=== PATIENT | female | born 1935 | race Caucasian/White ===

== ENCOUNTER 2016-12-20 06:11 | Day surgery (SDC) | payer MEDICARE ==
[~2016-12-20 06:11] MED LIST: Buffered Lidocaine 0.9% SYRIN* 5 ML/SYR SYRINGE INTRADERM ONE; Famotidine IV* 10 MG/ML 2 ML (20 mg) IV ONE
[2016-12-20] MEDS ORDERED: Famotidine IV* 10 MG/ML 2 ML (20 mg) ONE (06:12)
[2016-12-20] MEDS ORDERED: ceFOXitin 2 GM IVPREMIX* 2 GM/50 ML BAG ONE (06:12)
[2016-12-20] MEDS ORDERED: Midazolam* 1 MG/ML 5 ML VIAL (5 MG) ONE (07:29)
[2016-12-20] MEDS ORDERED: fentaNYL* 50 MCG/ML 2 ML VIAL (100 MCG VIAL) ONE (07:29)
[2016-12-20] MEDS ORDERED: Chloroprocaine 2%* 20 ML VIAL ONE (08:11)
[2016-12-20] MEDS ORDERED: DiMENhydriNATE IV* 50 MG/ML VIAL ONE (08:11)
[2016-12-20] MEDS ORDERED: Ondansetron INJ* 2 MG/ML VIAL ONE (08:11)
[2016-12-20] MEDS ORDERED: DiMENhydriNATE IV* 50 MG/ML VIAL IV PUSH PRN (08:18)
[2016-12-20] MEDS ORDERED: Acetaminophen TAB* 325 MG PO PRN (08:18)
[2016-12-20 10:29] VITALS: BP 140/60
--- NOTE | 2016-12-20 19:46 | OP ---
DATE OF OPERATION: 12/20/16 [facility] DATE OF : 31 SURGEON: Lena Mast MD REPAIRER TYPEWRITER: None. ANESTHESIOLOGIST: Blanca Acevedo MD ANESTHESIA: spinal PRE-OP DIAGNOSES: Postmenopausal bleeding, stenotic cervix. POST-OP DIAGNOSES: Postmenopausal bleeding, stenotic cervix. OPERATIVE PROCEDURE: Failed attempt at dilation, failed hysteroscopy. ESTIMATED BLOOD LOSS: Minimal. URINE OUTPUT: 250 cc of clear yellow urine. DEFICIT: 100 cc. FLUIDS: 550 cc of crystalloids. FINDINGS: Revealed densely stenotic cervix, external os identified. I am not able to identify the endocervical canal with use of hysteroscope, not able to identify uterine cavity. COMPLICATIONS: None apparent. DISPOSITION: Stable to recovery room. DESCRIPTION OF PROCEDURE: The patient was placed in dorsal lithotomy position. Legs were placed in Gervais Paramjit stirrups. Perineum and vagina were prepped and draped in a sterile standard fashion. The patient was identified with universal protocol for correct procedure, patient, and position. The bladder was drained using self-cath for 250 cc of clear yellow urine, self-cath removed. Sterile speculum was inserted. The cervix was grasped on the anterior lip and using small lacrimal duct probe, attempt was made at dilation. Hegar's were then used. Hysteroscope was inserted as we had approximately 1 cm past the external os identified. The hysteroscope failed to reveal any endocervical canal. The endocervical canal was completely obliterated and given prior history of LEEP procedure and loss of cervical volume, a decision was made at this point to abort the procedure with concerns of perforation both anterior and posterior. Single- tooth tenaculum was removed. Sterile speculum was removed. The patient was returned to dorsal lithotomy position and taken to recovery room in stable condition. ADDENDUM: This was reviewed in total with the patient and the patient's children. Given the patient's daughter's history of uterine cancer and the thickened endometrium in the setting of postmenopausal bleeding, I have recommended to proceed at this point with referral for [facility], where an attempt will be made again to see if we can get sampling of the endometrial cavity and if this is not possible, then to proceed with hysterectomy with frozen at the time of hysterectomy and then possible staging. [id number]/[facility] #: [id number] [facility]
== END 2016-12-20 10:29 | disposition home or self-care (01) ==
LOC: OR 06:11
PROVIDERS: ATTEND Obstetrics & Gynecology
DX: N95.0 Postmenopausal bleeding (principal); N88.2 Stricture and stenosis of cervix uteri; I25.10 Atherosclerotic heart disease of native coronary artery without angina pectoris; Z95.5 Presence of coronary angioplasty implant and graft; N18.9 Chronic kidney disease, unspecified; Z87.891 Personal history of nicotine dependence; I12.9 Hypertensive chronic kidney disease with stage 1 through stage 4 chronic kidney disease, or unspecified chronic kidney disease
CPT/HCPCS: J0694; J1240; J2250; J2400; J2405; J3010

== ENCOUNTER 2017-03-25 22:19 | Inpatient (IN) | payer MEDICARE ==
[2017-03-25 23:32] LABS: Hematocrit 39 % (35-47); Hemoglobin 13.1 g/dl (12.0-16.0); Mean Corpuscular HGB Conc 33 g/dl (31-36); Mean Corpuscular Hemoglobin 31 pg (27-31); Mean Corpuscular Volume 91 fL (80-97); Mean Platelet Volume 11 um3 (7.4-10.4); Red Cell Distribution Width 14 % (10.5-15); White Blood Count 6.8 10^3/ul (3.5-10.8)
[2017-03-25 23:42] LABS: Albumin 4.3 g/dL (3.2-5.2); BUN/Creatinine Ratio 24.3 (8-20); Calcium 9.7 mg/dL (8.6-10.3); EGFR African American 44.6 (>60); EGFR Non-African American 34.7 (>60); Potassium 4.2 mmol/L (3.5-5.0); Total Bilirubin 0.6 mg/dL (0.2-1.0); Total Protein 7.3 g/dL (6.4-8.9)
[2017-03-26 00:31] LABS: Urine Bacteria 1+ (Absent); Urine Bilirubin Negative (Negative); Urine Glucose Negative (Negative); Urine Nitrite Negative (Negative)
[2017-03-26] MEDS ORDERED: Levofloxacin TAB* 500 MG PO ONE (00:42)
[2017-03-26] MEDS ORDERED: Aspirin TAB* 325 MG PO ONE (00:42)
--- NOTE | 2017-03-26 00:59 | HP ---
H&P (Free Text) History and Physical: PCP: Ramirez Palmer MD Date/Time: 03/26/2017 0055 CC: visual changes HPI: Mrs Vargas is an 82YO female HX CAD, HTN, & HLD who reports a brief episode last Saturday in which she was reading and noticed the tail end of the words were missing. Tonight after arriving home from mormonism she began having flashes of "lighting" in the L eye associated with sharp pain in the R eye along with an unsteady gait for which she presents. Currently all symptoms have resolved and she feels she is at her baseline. She denies focal W/N/T, change in speech/swallow, chest pain, N/V, SOB, palpitations, F/C, cough, congestion, change in bowel/bladder, rash, or other issues. She does remember having a sharp shooting pain in her R head about 2 weeks ago. PMedHx CAD HTN HLD chronic hypo-esthesia of LL leg Ambulatory Orders Aspirin [Aspirin Childrens] 81 mg PO QAM 09/25/12 Metoprolol Tartrate 100 mg PO BID 09/25/12 Simvastatin [Zocor] 40 mg PO QPM 09/25/12 Valsartan TAB* [Diovan*] 80 mg PO QAM 09/25/12 Acetaminophen TAB* [Tylenol TAB*] 500 mg PO Q4H PRN 10/27/15 Multiple Vitamin [One Daily] 1 tab PO DAILY 03/26/17 Allergies Clopidogrel [From Plavix] Allergy (Severe, Verified 12/20/16 06:26) Hives Amoxicillin Allergy (Intermediate, Verified 12/20/16 06:26) Rash Adhesive Tape Allergy (Verified 12/20/16 06:26) Rash REPORTS SKIN IS RED WHEN SHE REMOVES A BANDAID Codeine Adverse Reaction (Intermediate, Verified 12/20/16 06:26) n/v Ramipril [From Altace] Adverse Reaction (Intermediate, Verified 12/20/16 06:26) Diarrhea iv dye Allergy (Intermediate, Uncoded 12/20/16 06:26) Hives PSurgHx "colon operation" cardiac stent x3 recent uterine BX (benign per patient) bladder polyp excision OU cataract extraction SocHx: quit smoking 1963, denies alcohol & recreational drugs; , lives alone; full code status FamHx: positive for CAD, HTN, HLD ROS: as above, otherwise reviewed and all were negative vitals: Vital Signs Temp 36.6 C 03/25/17 22:28 Pulse 67 03/26/17 02:00 Resp 17 03/26/17 02:00 BP 148/66 03/26/17 02:00 Pulse Ox 98 03/26/17 02:00 Intake & Output 03/25/17 03/25/17 03/26/17 11:59 23:59 11:59 Weight 91.626 kg Constitutional: NAD, normally developed, obese elderly white female HEENM: atraumatic; sclera/conjunctiva: non-icteric/clear; hearing: clinically intact; oropharynx: clear, mucosa moist Neck: soft tissue: non-tender; thyroid: normal Pulmonary: clear to auscultation bilaterally, good aeration, no accessory muscle use CV: RR/RR, normal S1S2, no carotid bruit, no jugular venous distention, 1+ B DP/ PT, no edema Abdominal: soft, non-distended, non-tender, no rebound/guarding/rigidity, normoactive bowel sounds, no hepatosplenomegaly or masses, no costovertebral angle tenderness Musculoskeletal: general: grossly intact, no palpable tenderness Integumental: normal appearance and texture of exposed skin Neurological cranial nerves III/IV/: symmetric light reflex, EOMI/PERRLA VII: intact facial symmetry VIII: hearing clinically intact IX/X: symmetric palatal motion, no dysarthria XII: midline tongue protrusion, normal voice articulation motor LUE: 4+/5 proximally, distally, & frame sample and pattern supervisor strength RUE: 4+/5 proximally, distally, & frame sample and pattern supervisor strength LLE: 4+/5 proximally & distally RLE: 4+/5 proximally & distally sensory crude touch: decreased LL leg (chronic per patient) Psychiatric orientation: AA&O to PPS affect: calm mood: cooperative eye contact: good content: reliable responses: timely insight: good Testing: Lab Results 03/25/17 03/25/17 03/25/17 Range/Units 23:05 23:05 23:05 WBC 6.8 (3.5-10.8) 10^3/ul RBC 4.30 (4.0-5.4) 10^6/ul Hgb 13.1 (12.0-16.0) g/dl Hct 39 (35-47) % MCV 91 (80-97) fL MCH 31 (27-31) pg MCHC 33 (31-36) g/dl RDW 14 (10.5-15) % Plt Count 156 (150-450) 10^3/ul MPV 11 H (7.4-10.4) um3 Neut % (Auto) 61.2 (38-83) % Lymph % (Auto) 26.6 (25-47) % [place] % (Auto) 9.2 H (1-9) % Eos % (Auto) 2.3 (0-6) % Baso % (Auto) 0.7 (0-2) % Absolute Neuts (auto) 4.2 (1.5-7.7) 10^3/ul Absolute Lymphs (auto) 1.8 (1.0-4.8) 10^3/ul Absolute Monos (auto) 0.6 (0-0.8) 10^3/ul Absolute Eos (auto) 0.2 (0-0.6) 10^3/ul Absolute Basos (auto) 0.1 (0-0.2) 10^3/ul Absolute Nucleated RBC 0.01 10^3/ul Nucleated RBC % 0.1 INR (Anticoag Therapy) 0.90 (0.89-1.11) APTT 25.2 L (26.0-36.3) seconds Sodium 138 (133-145) mmol/L Potassium 4.2 (3.5-5.0) mmol/L Chloride 104 (101-111) mmol/L Carbon Dioxide 28 (22-32) mmol/L Anion Gap 6 (2-11) mmol/L BUN 35 H (6-24) mg/dL Creatinine 1.44 H (0.51-0.95) mg/dL Est GFR ( Amer) 44.6 (>60) Est GFR (Non-Af Amer) 34.7 (>60) BUN/Creatinine Ratio 24.3 H (8-20) Glucose 121 H (70-100) mg/dL Calcium 9.7 (8.6-10.3) mg/dL Total Bilirubin 0.60 (0.2-1.0) mg/dL AST 19 (13-39) U/L ALT 15 (7-52) U/L Alkaline Phosphatase 59 (34-104) U/L Troponin I 0.00 (<0.04) ng/mL Total Protein 7.3 (6.4-8.9) g/dL Albumin 4.3 (3.2-5.2) g/dL Globulin 3.0 (2-4) g/dL Albumin/Globulin Ratio 1.4 (1-3) Urine Color Urine Appearance Urine pH (5-9) Ur Specific [place] (1.010-1.030) Urine Protein (Negative) Urine Ketones (Negative) Urine Blood (Negative) Urine Nitrate (Negative) Urine Bilirubin (Negative) Urine Urobilinogen (Negative) Ur Leukocyte Esterase (Negative) Urine WBC (Auto) (Absent) Urine RBC (Auto) (Absent) Ur Squamous Epith Cells (Absent) Urine Bacteria (Absent) Hyaline Casts (Absent) Urine Glucose (Negative) Urine Ascorbic Acid (Negative) 03/25/17 Range/Units 23:59 WBC (3.5-10.8) 10^3/ul RBC (4.0-5.4) 10^6/ul Hgb (12.0-16.0) g/dl Hct (35-47) % MCV (80-97) fL MCH (27-31) pg MCHC (31-36) g/dl RDW (10.5-15) % Plt Count (150-450) 10^3/ul MPV (7.4-10.4) um3 Neut % (Auto) (38-83) % Lymph % (Auto) (25-47) % [place] % (Auto) (1-9) % Eos % (Auto) (0-6) % Baso % (Auto) (0-2) % Absolute Neuts (auto) (1.5-7.7) 10^3/ul Absolute Lymphs (auto) (1.0-4.8) 10^3/ul Absolute Monos (auto) (0-0.8) 10^3/ul Absolute Eos (auto) (0-0.6) 10^3/ul Absolute Basos (auto) (0-0.2) 10^3/ul Absolute Nucleated RBC 10^3/ul Nucleated RBC % INR (Anticoag Therapy) (0.89-1.11) APTT (26.0-36.3) seconds Sodium (133-145) mmol/L Potassium (3.5-5.0) mmol/L Chloride (101-111) mmol/L Carbon Dioxide (22-32) mmol/L Anion Gap (2-11) mmol/L BUN (6-24) mg/dL Creatinine (0.51-0.95) mg/dL Est GFR ( Amer) (>60) Est GFR (Non-Af Amer) (>60) BUN/Creatinine Ratio (8-20) Glucose (70-100) mg/dL Calcium (8.6-10.3) mg/dL Total Bilirubin (0.2-1.0) mg/dL AST (13-39) U/L ALT (7-52) U/L Alkaline Phosphatase (34-104) U/L Troponin I (<0.04) ng/mL Total Protein (6.4-8.9) g/dL Albumin (3.2-5.2) g/dL Globulin (2-4) g/dL Albumin/Globulin Ratio (1-3) Urine Color Yellow Urine Appearance Cloudy Urine pH 5.0 (5-9) Ur Specific [place] 1.019 (1.010-1.030) Urine Protein Negative (Negative) Urine Ketones Negative (Negative) Urine Blood Negative (Negative) Urine Nitrate Negative (Negative) Urine Bilirubin Negative (Negative) Urine Urobilinogen Negative (Negative) Ur Leukocyte Esterase 2+ H (Negative) Urine WBC (Auto) 3+(>20/hpf) H (Absent) Urine RBC (Auto) Trace(0-2/hpf) (Absent) Ur Squamous Epith Cells Present H (Absent) Urine Bacteria 1+ H (Absent) Hyaline Casts Present H (Absent) Urine Glucose Negative (Negative) Urine Ascorbic Acid * H (Negative) ECG, personally reviewed: NSR rate 66, no ischemia CT brain WO, personally reviewed: IMPRESSION: Focal subcortical edema in the right frontal lobe may reflect a small early lacunar infarct, or edema from underlying lesion. Correlation with MRI with diffusion weighted images and contrast is recommended if there is no prior study for comparison. 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 mass : neurochecks : MRI brain W in AM : consider ECHO in AM, pending MRI brain W result : consider neurology consult in AM, pending MRI brain W result : lipid profile in AM : supplemental oxygen : aspirin : PT/OT evaluations : bedside swallow passed per ED nursing : telemetry : supportive care Secondary CAD : continue aspirin, valsartan, metoprolol, & simvastatin HTN : continue valsartan & metoprolol HLD : continue simvastatin chronic hypo-esthesia of LL leg : no acute issues Admission Rational: observation for evaluation of CVA vs cranial lesion DVTp: SCDs, no anticoagulation until nature of cranial lesion better illuminated Code Status: full, needs revisiting HCP: daughter, Miri Boyer
[2017-03-26] MEDS ORDERED: Acetaminophen TAB* 325 MG PO PRN (02:31)
[2017-03-26] MEDS ORDERED: Ondansetron INJ* 2 MG/ML VIAL IV PRN (02:31)
[2017-03-26] MEDS ORDERED: Melatonin (NF) 3 MG TAB PO PRN (02:31)
[2017-03-26] MEDS ORDERED: Albuterol 2.5 MG/3 ML NEB.SOL* (0.083%) INH PRN (02:31)
--- NOTE | 2017-03-26 02:38 | ED ---
Sheri Souza Thomas, scribed for Evan Medel on 03/25/17 at 2257 . Neurological HPI - HPI Summary HPI Summary: The pt is an 82 y/o F c/o vision loss in her right eye that began two days ago. This vision loss is intermittent and she says it disrupts her reading. She complains of mild right eye pain rated 1/10 and described as an ache. The pain is aggravated by nothing and is alleviated by nothing. Pt denies numbness, weakness, CP, and SOB. She has as Hx of [place] about 10 years ago. The patient is accompanied by a female family member. - History of Current Complaint Chief Complaint: EDDizziness Stated Complaint: DIZZINESS Time Seen by Provider: 03/25/17 22:22 Hx Obtained From: Patient, Family/Tents Assembler - female family member is present Onset/Duration: Started days ago - onset of symptoms two days ago, Still Present Timing: Intermittent Episodes Lasting: Pain Intensity: 1 Pain Scale Used: 0-10 Numeric Character: Other: - Ache Aggravating: Nothing Alleviating: Nothing - Allergy/Home Medications Allergies/Adverse Reactions: Allergies Allergy/AdvReac Type Severity Reaction Status Date / Time Clopidogrel [From Plavix] Allergy Severe Hives Verified 12/20/16 06:26 Amoxicillin Allergy Intermediate Rash Verified 12/20/16 06:26 Adhesive Tape Allergy Rash Verified 12/20/16 06:26 Codeine AdvReac Intermediate n/v Verified 12/20/16 06:26 Ramipril [From Altace] AdvReac Intermediate Diarrhea Verified 12/20/16 06:26 iv dye Allergy Intermediate Hives Uncoded 12/20/16 06:26 Home Medications: Home Medications Multiple Vitamin [One Daily] 1 tab PO DAILY 03/26/17 [History Confirmed 03/26/17 ] PMH/Surg Hx/FS Hx/Imm Hx Previously Healthy: No Endocrine/Hematology History: Denies: Hx Bone Marrow Disease, Hx Diabetes, Hx Sickle Cell Disease, Hx Thyroid Disease, Hx Anemia Cardiovascular History: Reports: Hx Congestive Heart Failure - HEART DISEASE, Hx Coronary Artery Disease - HEART DISEASE-3 stents placed September 2005, Hx Hypercholesterolemia, Hx Hypertension - controlled with medication Denies: Hx Pacemaker/ICD, Hx Peripheral Vascular Disease, Other Cardiovascular Problems/Disorders Respiratory History: Denies: Hx Asthma, Hx Sleep Apnea GI History: Reports: Hx Irritable Bowel - controlled with diet, Other GI Disorders - 1993 transverse myelitis, colon polyp removed 1999, benign Denies: Hx Cirrhosis, Hx Gastroesophageal Reflux Disease History: Reports: Other Problems/Disorders - bladder polyp removed, benign , approx 2012 Denies: Hx Kidney Infection, Hx Kidney Stones Musculoskeletal History: Reports: Hx Arthritis - FINGERS, SHOULDERS, KNEES Sensory History: Reports: Hx Cataracts - SURGERY BI-LAT 2014, Hx Contacts or Glasses - GLASSES Denies: Hx Glaucoma, Hx Hearing Aid Opthamlomology History: Reports: Hx Cataracts - SURGERY BI-LAT 2014, Hx Contacts or Glasses - GLASSES Denies: Hx Glaucoma Neurological History: Reports: Other Neuro Impairments/Disorders - Hx of vertigo , positional, and when congested Denies: Hx Headaches, Hx Migraine, Hx Nerve Disease, Hx Seizures Psychiatric History: Denies: Hx Anxiety, Hx Depression - Cancer History Hx Chemotherapy: No Hx Radiation Therapy: No - Surgical History Surgery Procedure, Year, and Place: [facility]- 1990. COLONOSCOPY-REMOVAL OF POLYP BENIGN. 3 STENTS 2005. cataract removal Hx Anesthesia Reactions: No - PT REPORTS N/V EVERY TIME SHE HAS ANESTHESIA, POSITIONAL VERTIGO Infectious Disease History: No Infectious Disease History: Denies: Hx Hepatitis, History Other Infectious Disease, Traveled Outside the [place] in Last 30 Days - Family History Known Family History: Positive: Other - CVA - Social History Alcohol Use: None Substance Use Type: Reports: None Hx Tobacco Use: Yes Smoking Status (MU): Former Smoker Amount Used/How Often: SMOKED FOR 20 YRS, 1/2 PPD Have You Smoked in the Last Year: No Review of Systems Positive: Other - Right eye pain (10) Negative: Chest Pain Negative: Shortness Of Breath Neurological: Other - Intermittent vision loss in right eye Negative: Weakness, Numbness All Other Systems Reviewed And Are Negative: Yes Physical Exam - Summary Physical Exam Summary: Appearance: Well appearing, no pain distress Skin: warm, dry, reflects adequate perfusion Head/face: normal Eyes: EOMI, KAVITHA ENT: normal Neck: supple, nontender Respiratory: CTA, breath sounds present Cardiovascular: RRR, pulses symmetrical Abdomen: nontender, soft Bowel: present Musculoskeletal: normal, strength/ROM intact Neuro: normal, sensory motor intact, A&Ox3. NIH Stroke Scale of 0. Triage Information Reviewed: Yes Vital Signs On Initial Exam: Initial Vitals Temp Pulse Resp BP Pulse Ox 97.9 F 66 19 151/68 97 03/25/17 22:28 03/25/17 22:28 03/25/17 22:28 03/25/17 22:28 03/25/17 22:28 Vital Signs Reviewed: Yes - Donis Coma Scale Coma Scale Total: 15 Diagnostics - Vital Signs Vital Signs Temp Pulse Resp BP Pulse Ox 03/25/17 22:28 97.9 F 66 19 151/68 97 - Laboratory Lab Results: Lab Results 03/25/17 03/25/17 03/25/17 Range/Units 23:05 23:05 23:05 WBC 6.8 (3.5-10.8) 10^3/ul RBC 4.30 (4.0-5.4) 10^6/ul Hgb 13.1 (12.0-16.0) g/dl Hct 39 (35-47) % MCV 91 (80-97) fL MCH 31 (27-31) pg MCHC 33 (31-36) g/dl RDW 14 (10.5-15) % Plt Count 156 (150-450) 10^3/ul MPV 11 H (7.4-10.4) um3 Neut % (Auto) 61.2 (38-83) % Lymph % (Auto) 26.6 (25-47) % [place] % (Auto) 9.2 H (1-9) % Eos % (Auto) 2.3 (0-6) % Baso % (Auto) 0.7 (0-2) % Absolute Neuts (auto) 4.2 (1.5-7.7) 10^3/ul Absolute Lymphs (auto) 1.8 (1.0-4.8) 10^3/ul Absolute Monos (auto) 0.6 (0-0.8) 10^3/ul Absolute Eos (auto) 0.2 (0-0.6) 10^3/ul Absolute Basos (auto) 0.1 (0-0.2) 10^3/ul Absolute Nucleated RBC 0.01 10^3/ul Nucleated RBC % 0.1 INR (Anticoag Therapy) 0.90 (0.89-1.11) APTT 25.2 L (26.0-36.3) seconds Sodium 138 (133-145) mmol/L Potassium 4.2 (3.5-5.0) mmol/L Chloride 104 (101-111) mmol/L Carbon Dioxide 28 (22-32) mmol/L Anion Gap 6 (2-11) mmol/L BUN 35 H (6-24) mg/dL Creatinine 1.44 H (0.51-0.95) mg/dL Est GFR ( Amer) 44.6 (>60) Est GFR (Non-Af Amer) 34.7 (>60) BUN/Creatinine Ratio 24.3 H (8-20) Glucose 121 H (70-100) mg/dL Calcium 9.7 (8.6-10.3) mg/dL Total Bilirubin 0.60 (0.2-1.0) mg/dL AST 19 (13-39) U/L ALT 15 (7-52) U/L Alkaline Phosphatase 59 (34-104) U/L Troponin I 0.00 (<0.04) ng/mL Total Protein 7.3 (6.4-8.9) g/dL Albumin 4.3 (3.2-5.2) g/dL Globulin 3.0 (2-4) g/dL Albumin/Globulin Ratio 1.4 (1-3) Urine Color Urine Appearance Urine pH (5-9) Ur Specific [place] (1.010-1.030) Urine Protein (Negative) Urine Ketones (Negative) Urine Blood (Negative) Urine Nitrate (Negative) Urine Bilirubin (Negative) Urine Urobilinogen (Negative) Ur Leukocyte Esterase (Negative) Urine WBC (Auto) (Absent) Urine RBC (Auto) (Absent) Ur Squamous Epith Cells (Absent) Urine Bacteria (Absent) Hyaline Casts (Absent) Urine Glucose (Negative) Urine Ascorbic Acid (Negative) 03/25/17 Range/Units 23:59 WBC (3.5-10.8) 10^3/ul RBC (4.0-5.4) 10^6/ul Hgb (12.0-16.0) g/dl Hct (35-47) % MCV (80-97) fL MCH (27-31) pg MCHC (31-36) g/dl RDW (10.5-15) % Plt Count (150-450) 10^3/ul MPV (7.4-10.4) um3 Neut % (Auto) (38-83) % Lymph % (Auto) (25-47) % [place] % (Auto) (1-9) % Eos % (Auto) (0-6) % Baso % (Auto) (0-2) % Absolute Neuts (auto) (1.5-7.7) 10^3/ul Absolute Lymphs (auto) (1.0-4.8) 10^3/ul Absolute Monos (auto) (0-0.8) 10^3/ul Absolute Eos (auto) (0-0.6) 10^3/ul Absolute Basos (auto) (0-0.2) 10^3/ul Absolute Nucleated RBC 10^3/ul Nucleated RBC % INR (Anticoag Therapy) (0.89-1.11) APTT (26.0-36.3) seconds Sodium (133-145) mmol/L Potassium (3.5-5.0) mmol/L Chloride (101-111) mmol/L Carbon Dioxide (22-32) mmol/L Anion Gap (2-11) mmol/L BUN (6-24) mg/dL Creatinine (0.51-0.95) mg/dL Est GFR ( Amer) (>60) Est GFR (Non-Af Amer) (>60) BUN/Creatinine Ratio (8-20) Glucose (70-100) mg/dL Calcium (8.6-10.3) mg/dL Total Bilirubin (0.2-1.0) mg/dL AST (13-39) U/L ALT (7-52) U/L Alkaline Phosphatase (34-104) U/L Troponin I (<0.04) ng/mL Total Protein (6.4-8.9) g/dL Albumin (3.2-5.2) g/dL Globulin (2-4) g/dL Albumin/Globulin Ratio (1-3) Urine Color Yellow Urine Appearance Cloudy Urine pH 5.0 (5-9) Ur Specific [place] 1.019 (1.010-1.030) Urine Protein Negative (Negative) Urine Ketones Negative (Negative) Urine Blood Negative (Negative) Urine Nitrate Negative (Negative) Urine Bilirubin Negative (Negative) Urine Urobilinogen Negative (Negative) Ur Leukocyte Esterase 2+ H (Negative) Urine WBC (Auto) 3+(>20/hpf) H (Absent) Urine RBC (Auto) Trace(0-2/hpf) (Absent) Ur Squamous Epith Cells Present H (Absent) Urine Bacteria 1+ H (Absent) Hyaline Casts Present H (Absent) Urine Glucose Negative (Negative) Urine Ascorbic Acid * H (Negative) Result Diagrams: 03/25/17 23:05 03/25/17 23:05 Lab Statement: Any lab studies that have been ordered have been reviewed, and results considered in the medical decision making process. - CT CT Brain CT Interpretation: Positive (See Comments) - Focal subcortical edema in the right frontal lobe may reflect a small early lacunar infarction, or edema from underlying lesion. Correlation with MRI with diffuse weighted images and contrast is recommended if there is no prior study for comparison. ED physician has reviewed this report and agrees. CT Interpretation Completed By: Radiologist - EKG 22:48 Cardiac Rate: NL - 68 BPM EKG Rhythm: Sinus Rhythm EKG Interpretation: No acute changes. NIH Scale - NIH Scale Level of Consciousness: Alert/Keenly Responsive Ask Patient the Month and His/Her Age: Both Correct Ask Pt to Open/Close Eyes and Service Learning Coordinator/Release Non-Paretic Hand: Both Correctly Best Gaze (Only Horizontal Eye Movement): Normal Visual Field Testing: No Visual Loss Facial Paresis-Pt to Smile & Close Eyes or Grimace Symmetry: Normal/Symmetrical Motor Function - Right Arm: No Drift-Holds 10 Seconds Motor Function - Left Arm: No Drift-Holds 10 Seconds Motor Function - Right Leg: No Drift-Holds 10 Seconds Motor Function - Left Leg: No Drift-Holds 10 Seconds Limb Ataxia-Must be out of Proportion to Weakness Present: Absent Sensory (Use Pinprick to Test Arms/Legs/Trunk/Face): Normal Best Language (Describe Picture, Name Items): No Aphasia Dysarthria (Read Several Words): Normal Extinction and Inattention: No Abnormality Total Score: 0 Course/Dx - Course Assessment/Plan: The pt is an 82 y/o F c/o intermittent vision loss in her right eye that began two days ago. Labs, EKG, and CT Brain were obtained. The patient is diagnosed with CVA and UTI. She will be admitted to [facility] by Dr. Ray for further workup and management. He agrees with the plan going forward. - Differential Dx Differential Diagnoses Neuro: Positive: Cerebrovascular Accident, Intracranial Bleed, Migraine - Diagnoses Provider Diagnoses: CVA (cerebral vascular accident), UTI (urinary tract infection) - Physician Notifications Discussed Care Of Patient With: Jamie Ray Time Discussed With Above Provider: 00:58 Instructed by Provider To: Other - amber Paulson, admits the patient to [facility]. - Critical Care Time Critical Care Time: 30-74 min Discharge - Discharge Plan Condition: Fair Disposition: ADMITTED TO [facility] Referrals: uJlio Palmer MD [Primary Care Provider] - The documentation as recorded by the Sheri choudhury Thomas accurately reflects the service I personally performed and the decisions made by Lizy cedeño Emmanuel.
[2017-03-26] MEDS: NS 0.9% 1000 ML* 1,000 ML IV SCH (03:51)
[2017-03-26] MEDS: Omeprazole CAP* 20 MG PO SCH (05:29)
[2017-03-26 06:32] LABS: BUN/Creatinine Ratio 25.4 (8-20); Calcium 8.9 mg/dL (8.6-10.3); HDL Cholesterol 42.8 mg/dL; Potassium 4.3 mmol/L (3.5-5.0)
[2017-03-26 06:41] LABS: Hematocrit 33 % (35-47); Mean Corpuscular HGB Conc 34 g/dl (31-36); Mean Corpuscular Hemoglobin 31 pg (27-31); Mean Corpuscular Volume 93 fL (80-97); Mean Platelet Volume 11 um3 (7.4-10.4); Red Cell Distribution Width 14 % (10.5-15); White Blood Count 6.3 10^3/ul (3.5-10.8)
[2017-03-26 07:19] LABS: Comments Flag Yes
[2017-03-26] MEDS: Metoprolol Tartrate TAB* 100 MG TAB PO SCH ×2 (07:59→20:40)
[2017-03-26] MEDS: Valsartan TAB* 80 MG PO SCH (07:59)
[2017-03-26] MEDS: Docusate CAP* 100 MG PO SCH ×2 (08:00→20:39)
[2017-03-26] MEDS: Aspirin Low Dose CHEW TAB* 81 MG PO SCH (08:00)
--- NOTE | 2017-03-26 08:01 | RAD ---
HISTORY: TIA, visual changes COMPARISONS: None TECHNIQUE: Multiple contiguous axial CT scans were obtained of the head without intravenous contrast. FINDINGS: HEMORRHAGE/INFARCT: There is no hemorrhage or acute infarct. MASSES/SHIFT: There is no mass or shift. EXTRA-AXIAL SPACES: There are no extra-axial fluid collections. SULCI AND VENTRICLES: The sulci and ventricles are normal in size and position for the patient's stated age. CEREBRUM: There is a small focus of hypoattenuation within the subcortical white matter of the right frontal lobe. There is sparing of the cortical stripe. BRAINSTEM: There are no focal parenchymal abnormalities. CEREBELLUM: There are no focal parenchymal abnormalities. VESSELS: The vessels are grossly normal. PARANASAL SINUSES: The paranasal sinuses are clear. ORBITS: The orbits are unremarkable. BONES AND SOFT TISSUE: No bone or soft tissue abnormalities are noted. OTHER: None IMPRESSION: SMALL FOCUS OF HYPOATTENUATION WITHIN THE SUBCORTICAL WHITE MATTER RIGHT FRONTAL LOBE. THIS MAY REFLECT CHRONIC SMALL VESSEL ISCHEMIC CHANGE, A SMALL FOCUS OF VASOGENIC EDEMA, POSSIBLY SUBCORTICAL SUBACUTE TO CHRONIC INFARCT. RECOMMEND CONSIDERATION OF FURTHER EVALUATION WITH CONTRAST-ENHANCED MRI OF THE BRAIN IN THE NONACUTE SETTING.
[2017-03-26] MEDS ORDERED: Gadoteridol* (CONTRAST) 279.3 MG/ML 10 ML IV ONE (11:41)
--- NOTE | 2017-03-26 12:02 | RAD ---
HISTORY: Abnormal head CT COMPARISONS: Head CT dated March 25, 2017 TECHNIQUE: The following sequences were obtained of the head: Sagittal T1-weighted images, axial T2-weighted images, axial FLAIR images, axial susceptibility weighted images, axial T1-weighted images. Additionally, axial diffusion-weighted images were obtained with calculated apparent diffusion coefficients. Additionally, sagittal, coronal, and axial T1-weighted images were obtained after contrast enhancement with a gadolinium-based intravenous contrast agent. FINDINGS: HEMORRHAGE/INFARCT: There is no hemorrhage or acute infarct. MASSES/SHIFT: There is no mass or shift. EXTRA-AXIAL SPACES/MENINGES: There are no extra-axial fluid collections. SULCI AND VENTRICLES: The sulci and ventricles are normal in size and position for the patient's stated age. CEREBRUM: There are multiple scattered foci of elevated T2/FLAIR signal within the periventricular and subcortical white matter. This includes a focus of white matter changes corresponding to the CT finding in the right frontal lobe. There is no associated abnormal enhancement. BRAINSTEM: There are no focal parenchymal abnormalities. CEREBELLUM: There are no focal parenchymal abnormalities. The cerebellar tonsils are normal in size and position. SELLA: The sella is normal. PINEAL: The pineal region is clear. CP ANGLE/TEMPORAL BONES: The labyrinthine structures are grossly normal. VESSELS: Normal flow-voids are noted within the visualized vertebral vasculature. DIFFUSION ABNORMALITIES: There are no diffusion abnormalities. PARANASAL SINUSES/MASTOIDS: The paranasal sinuses are clear. ORBITS: The orbits are unremarkable. BONES AND SOFT TISSUE: No bone or soft tissue abnormalities are noted. OTHER: There is no abnormal enhancement. IMPRESSION: MULTIPLE SCATTERED SMALL FOCI OF ELEVATED T2/FLAIR SIGNAL IN THE PERIVENTRICULAR AND SUBCORTICAL WHITE MATTER, INCLUDING CORRESPONDING TO THE FINDING NOTED ON CT. WHILE NONSPECIFIC, THE FINDINGS ARE SUGGESTIVE OF CHRONIC SMALL VESSEL ISCHEMIA. THERE IS NO ASSOCIATED ABNORMAL ENHANCEMENT.
--- NOTE | 2017-03-26 13:06 | RAD ---
HISTORY: Possible TIA COMPARISONS: None TECHNIQUE: Multiple transverse and longitudinal ultrasound images were obtained of the carotid and vertebral arteries bilaterally, using grayscale, color Doppler, and spectral Doppler imaging. FINDINGS: Measurement of carotid stenosis is based on flow velocity parameters that correlate the residual internal carotid artery diameter with [place] Symptomatic Carotid Endarterectomy Trial (NASCET)-based stenosis levels. RIGHT: Intima: There is diffuse intimal thickening with more focal atheroma formation at the bifurcation. Velocities: Right internal carotid artery maximum peak systolic velocity: 80 cm/s Right common carotid artery maximum peak systolic velocity: 100 cm/s Right internal carotid artery/common carotid artery ratio: 1.1 Waveforms: There is no spectral broadening. Right Vertebral: The right vertebral artery flow is antegrade. LEFT: Intima: There is diffuse intimal thickening with more focal atheroma formation at the bifurcation. Velocities: Left internal carotid artery maximum peak systolic velocity: 107 cm/s Left common carotid artery maximum peak systolic velocity: 96 cm/s Left internal carotid artery/common carotid artery ratio: 1 Waveforms: There is no spectral broadening. Left Vertebral: The left vertebral artery flow is antegrade. OTHER FINDINGS: None. IMPRESSION: 1. ATHEROMATOUS DISEASE. 2. NO HEMODYNAMICALLY SIGNIFICANT STENOSIS OF THE RIGHT INTERNAL CAROTID ARTERY BY FLOW VELOCITY MEASUREMENTS. THIS CORRESPONDS TO A LUMINAL DIAMETER OF LESS THAN 50% STENOSIS BY NASCET CRITERIA. 3. NO HEMODYNAMICALLY SIGNIFICANT STENOSIS OF THE LEFT INTERNAL CAROTID ARTERY BY FLOW VELOCITY MEASUREMENTS. THIS CORRESPONDS TO A LUMINAL DIAMETER OF LESS THAN 50% STENOSIS BY NASCET CRITERIA. CPT II Codes: 3100F
[2017-03-26] MEDS: Sulfamethox/Trimethoprim DS 800/160* TAB PO SCH ×2 (13:41→20:39)
[2017-03-26] MEDS: Atorvastatin* 20 MG TAB PO SCH (17:26)
[2017-03-27] MEDS: NS 0.9% 1000 ML* 1,000 ML IV SCH ×2 (01:42→15:56)
[2017-03-27] MEDS: Omeprazole CAP* 20 MG PO SCH (06:34)
[2017-03-27 06:52] LABS: Hematocrit 35 % (35-47); Hemoglobin 11.7 g/dl (12.0-16.0); Mean Corpuscular HGB Conc 34 g/dl (31-36); Mean Corpuscular Hemoglobin 31 pg (27-31); Mean Corpuscular Volume 91 fL (80-97); Mean Platelet Volume 11 um3 (7.4-10.4); Red Blood Count 3.82 10^6/ul (4.0-5.4); Red Cell Distribution Width 14 % (10.5-15)
[2017-03-27 07:15] LABS: BUN/Creatinine Ratio 19.7 (8-20); EGFR African American 49.3 (>60); EGFR Non-African American 38.3 (>60); Magnesium 1.9 mg/dL (1.9-2.7); Potassium 4.2 mmol/L (3.5-5.0)
[2017-03-27] MEDS: Valsartan TAB* 80 MG PO SCH (10:15)
[2017-03-27] MEDS: Sulfamethox/Trimethoprim DS 800/160* TAB PO SCH ×2 (10:15→21:01)
[2017-03-27] MEDS: Aspirin Low Dose CHEW TAB* 81 MG PO SCH (10:15)
[2017-03-27] MEDS: Docusate CAP* 100 MG PO SCH ×2 (10:15→21:01)
[2017-03-27] MEDS: Metoprolol Tartrate TAB* 100 MG TAB PO SCH ×2 (10:15→21:00)
--- NOTE | 2017-03-27 12:14 | ECHO ---
Patient: TATYANA FRASER [facility] Rec#: [id number] : 1935 Date: 03/27/2017 Age: 82y Height: 160.02 cm / 63.0 in Weight: 91.63 kg / 202.0 lbs Sex: F BSA: 1.94 Room#: [facility] Admit Date#: 03/26/2017 Type: Inpatient Referring: Julio Palmer MD Reading: Shweta Gann MD Field Underwriter: Diane Velasco [facility] [place] Transthoracic Echocardiogram Indication: CVA BP: 134/51 HR: 74 Rhythm: NSR Findings History: CAD with prior PCI,HTN,HLD. Technical Comments: The study quality is good. Completed at 1040. Left Ventricle: The left ventricular chamber size is normal. Global left ventricular wall motion and contractility are within normal limits. The estimated ejection fraction is 55-60%. Abnormal left ventricular diastolic function is observed. Left Atrium: The left atrial chamber size is normal. Right Ventricle: The right ventricular global systolic function is normal. Right Atrium: The right atrial cavity size is normal. There is no patent foramen ovale visualized. A patent foramen ovale is not demonstrated with color Doppler and agitated contrast. Aortic Valve: The aortic valve is trileaflet. There is no evidence of aortic regurgitation. There is no evidence of aortic stenosis. Mitral Valve: The mitral valve leaflets are mildly thickened. There is trace to mild mitral regurgitation. There is no evidence of mitral stenosis. Tricuspid Valve: The tricuspid valve leaflets are normal. There is mild tricuspid regurgitation. There is evidence of mild pulmonary hypertension. There is no tricuspid stenosis. Pulmonic Valve: The pulmonic valve appears normal. There is no evidence of pulmonic regurgitation. There is no pulmonic stenosis. Pericardium: A pericardial fat pad is visualized. Aorta: There is no dilatation of the ascending aorta. There is no dilatation of the aortic arch. There is no dilation of the aortic root. Pulmonary Artery: The main pulmonary artery appears normal. Venous: The inferior vena cava appears normal in size. There is a greater than 50% respiratory change in the inferior vena cava dimension. Contrast: Normal saline was used as contrast for the bubble study. Intravenous contrast was used to help determine presence of intracardiac shunting. Conclusions Global left ventricular wall motion and contractility are within normal limits. The estimated ejection fraction is 55-60%. The right ventricular global systolic function is normal. No evidence of a cardiopulmonary shunt based on color Doppler and agitated contrast. There is trace to mild mitral regurgitation. There is mild tricuspid regurgitation. There is evidence of mild pulmonary hypertension: 38 mmHg. Compared with prior echo of 11/01/16, no significant changes. Measurements Name Value Normal Range RVIDd (AP) 2D 2.7 cm (0.9 - 2.6) RVDdMajor (2D) 3.4 cm (2.2 - 4.4) RAd ISD 4CH 5.8 cm (3.4 - 4.9) RA (A4C)W 3.5 cm (2.9 - 4.6) IVSd (2D) 0.8 cm (0.6 - 1) LVPWd (2D) 0.8 cm (0.6 - 1) LVIDd (2D) 3.9 cm (3.6 - 5.4) LVIDs (2D) 3.1 cm - LV FS (2D) 21 % (25 - 45) Aortic Annulus 1.7 cm (1.4 - 2.6) Ao root diameter (2D) 3 cm (2.1 - 3.5) Ascending Ao 2.7 cm (2.1 - 3.4) Aortic arch 2.3 cm (1.8 - 3.4) Descending Ao 0.6 cm - LA dimension (AP) 2D 3.6 cm (2.3 - 3.8) LAd ISD 4CH 5.3 cm (2.9 - 5.3) LA ISD 4CH W 4 cm (2.5 - 4.5) Name Value Normal Range LA ESV SP 4CH (A/L) 59 ml - LA ESV SP 2CH (A/L) 46 ml - LA ESV BP (A/L) 52 ml - LA ESV BP (A/L) index 27.01 ml/m2 - LA ESV SP 4CH (MOD) 52 ml - LA ESV SP 2CH (MOD) 44 ml - Name Value Normal Range MV E-wave Vmax 1 m/sec - MV deceleration time 199 msec - MV A-wave Vmax 0.9 m/sec - MV E:A ratio 1.05 ratio - LV septal e' Vmax 0.06 m/sec - LV lateral e' Vmax 0.08 m/sec - LV E:e' septal ratio 16.7 ratio - LV E:e' lateral ratio 12.5 ratio - Name Value Normal Range AV Vmax 1.9 m/sec - AV VTI 46.6 cm - AV peak gradient 13.67 mmHg - AV mean gradient 7.31 mmHg - LVOT Vmax 1.2 m/sec - LVOT VTI 30.8 cm - LVOT peak gradient 5.58 mmHg - LVOT mean gradient 3.18 mmHg - Name Value Normal Range TR Vmax 3 m/sec - TR peak gradient 35 mmHg - RAP 3 mmHg - RVSP 38 mmHg - IVC diameter 1.7 cm - Name Value Normal Range PV Vmax 0.8 m/sec - PV peak gradient 2.84 mmHg -
--- NOTE | 2017-03-27 15:11 | CONS ---
CONSULTATION REPORT: DATE OF CONSULT: 03/27/2017. PATIENT OF: Dr. Palmer and Dr. Lokesh Castelan. HISTORY OF PRESENT ILLNESS: This is an 82-year-old right-handed woman, whom I am asked to evaluate for 2 visual disturbances in the past several days. The first occurred on Saturday, lasting just a couple of minutes, definitely less than 5, when she was reading and she noticed the right-hand side of words was missing. This occurred acutely and was resolved within a few minutes. Then, the night of admission, which was 03/25/17, she had flashes of lightning on the left. She did not cover either eye to note whether it was in the left eye or whether it was in the left visual field. This lasted a minute and a half. She had a retroorbital pain with this that was small, she could not quantitate it. She had a sharp shooting pain in the right side of her head 2 weeks ago. She has had no temporal tenderness. She has had no history of migraines. She has had no weakness, numbness, or tingling. No change in speech, swallowing. No nausea or vomiting. She has had no history of atrial fibrillation. She has chronic slight unsteadiness of gait with using a cane, but does not fall. Her walking has not changed recently. PAST MEDICAL HISTORY: She has a history of [place] 10 years ago and is status post 2 stents. 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 PAST SURGICAL HISTORY: She has had a colon surgery; stents x2 she said, but in chart it is 3; recent benign uterine biopsy; a bladder polyp excision; cataract extraction. MEDICATIONS: Chronic meds include: 1. Aspirin 81 mg a day. 2. Metoprolol 100 mg b.i.d. 3. Simvastatin 40 mg daily. 4. Diovan 80 mg q.a.m. 5. Multivitamin. ALLERGIES: She is allergic to PLAVIX with hives, AMOXICILLIN causes a rash. Allergic to CODEINE, RAMIPRIL, and allergic to DYE with hives. FAMILY HISTORY: Coronary artery disease, hypertension, and hyperlipidemia. SOCIAL HISTORY: She quit smoking in 1963. Does not use recreational drugs or alcohol. She is a and lives alone. REVIEW OF SYSTEMS: Negative in all 14 spheres other than the HPI. PHYSICAL EXAM: Temperature 98.6, pulse 62, respirations 20, blood pressure 126/ 49. She is alert and oriented with normal speech and comprehension. Cranial nerves II through XII are intact. Fundi were benign. Motor exam revealed normal tone, strength, coordination, sensation intact to light touch. Reflexes were 1 and equal, downgoing toes. Neck was supple, there was no temporal tenderness on either side. There was no visual field cut to large object. Chest: Clear. Cardiovascular: Regular rate and rhythm. Abdomen: Soft with positive bowel sounds. DIAGNOSTIC STUDIES/LAB DATA: I reviewed her MRI scan, which showed white matter disease diffusely but more subcortically, which is most likely secondary to small vessel ischemic disease. I discussed the issue of cardioembolic disease with Dr. Nelson, who thought it was quite unlikely. Labs included a white count of 7, hematocrit of 35, platelet count of 146. INR is 0.9, PTT 25. CMP had a BUN of 26, creatinine 1.3 today, glucose of 102. Admission liver function tests were normal. LDL was 48. UA had 2+ leuk esterase and 3+ white cells. She had transthoracic echo that showed no PFO and no source of clot. Carotid Doppler was negative. IMPRESSION AND PLAN: I discussed with Dr. Castelan and Nieves and her family that her history is suggestive of brief field cuts first on the right side then on the left raising the possibility of ischemia in alternating occipital lobes that was brief and represented a potential transient ischemic attack. At this point, I would increase her aspirin to 325 a day, but if this is what happened, then it raises the issue of cardioembolic event and she had ventricular tachycardia overnight, a brief run, and Cardiology is involved. There is no history of atrial fibrillation, but depending on what further is found in her heart, I recommended for longer-term monitoring to assess further for atrial fibrillation and also if she was willing to tolerate the procedure, getting a transesophageal echo. I discussed with her and Dr. Castelan, it seems like she would be a reasonable anticoagulation candidate without any contraindications if we were able to prove a cardiac source of this. It is possible that this could be from her basilar artery on either side, but we would not be able to prove for sure that that was the case and still be cardiac and proving basilar artery problems would not change her clinical management at this point, it is possible but much less likely this is temporal arteritis; she had no temporal tenderness, but I am checking a sed rate, if this is highly elevated, we would have to reconsider this. Please call me for problems. Thank you for sharing her case. [id number]/[facility] #: [id number] [place]ASH[place]
[2017-03-27 15:26] LABS: Erythrocyte Sed Rate 18 mm/Hr (0-40)
[2017-03-27] MEDS: Atorvastatin* 20 MG TAB PO SCH (16:52)
--- NOTE | 2017-03-27 22:49 | CONS ---
CC: Dr. Julio Palmer; Dr. Dereje Cain; Hospitalist* CONSULTATION REPORT: DATE OF CONSULTATION: 03/27/17 REASON FOR CONSULTATION: Ventricular tachycardia and TIAs. CHIEF COMPLAINT: Eye pain and vision changes. HISTORY OF PRESENT ILLNESS: Ms. Vargas is a very nice 82-year-old woman followed by my partner, Dr. Dereje Cain, for atherosclerotic heart disease with stenting over 10 years ago. The patient has been undergoing a rather prolonged evaluation for some uterine abnormalities and earlier this month, had drove to [place] to have an ultrasound- guided procedure. She has otherwise been in her usual state of health. On Saturday, 5 days ago, the patient had trouble reading where the ends of the words were missing. She also had some achy pain in the left eye. Then, the next day, she had flashing colored lights in the left eye and she has been off balance and dizzy. The patient denies any recurrence of her past anginal symptoms of chest discomfort. The patient states that other than the driving to [place] and back, she has been active and has not been sedentary. She has not required any new or different medications. Denies taking [id number] medications, excessive caffeine or alcohol and she denies missing any medications. The patient denies any awareness of fluttering or palpitations. The patient had had some nonsustained ventricular tachycardia just after midnight and the patient is unaware of snoring or significant fatigue. Her family is with her and says occasionally she will do a snort and it turns out based on her daughter and son's history that her children have sleep apnea and wears CPAP, they are familiar with this. PAST MEDICAL HISTORY: 1. The patient has a past medical history of coronary artery disease with a cardiac catheterization and stents in September of 2015. She has preserved ventricular systolic function with abnormal diastolic filling. 2. Hypertension. 3. Dyslipidemia. 4. Morbid obesity. 5. History of transverse myelitis in the distant past felt to be related to a virus. 6. Chronic leg weakness related to arthritis and her transverse myelitis. 7. Uterine abnormality, followed by Dr. Mast with uterine thickening and per patient benign. PAST SURGICAL HISTORY: Includes: 1. Cardiac stenting x3 in 2005. 2. Uterine ultrasound-guided biopsy. She underwent attempted surgical procedures, unable to be done from fibrosis. 3. Bilateral polyp excision. 4. Cataract extractions. 5. Colonoscopy. CURRENT INPATIENT MEDICATIONS: Include: 1. Tylenol p.r.n. 2. Ventolin nebulizer. 3. Aspirin 325 mg a day. 4. Lipitor 20 mg a day. 5. Colace. 6. Melatonin p.r.n. sleep. 7. Lopressor 100 mg b.i.d. 8. Prilosec 20 mg a day. 9. Zofran p.r.n. 10. Sodium chloride IV drip. 11. Bactrim 1 tablet b.i.d. 12. Valsartan 80 mg a day. ALLERGIES: She has allergies to PLAVIX (hives), AMOXICILLIN, ADHESIVE TAPE, IODINATED CONTRAST AGENTS, CODEINE, RAMIPRIL, IV DYE. SOCIAL HISTORY: The patient was , retired, former smoker, quit in 1963. No alcohol intake. FAMILY HISTORY: Positive for coronary artery disease, hypertension, dyslipidemia. REVIEW OF SYSTEMS: Positive for her vision changes described in the history of present illness. Recent travel 1.[address] to [place] for uterine procedure. Negative for fevers, chills, orthopnea, PND. Negative for angina. Negative for increased leg swelling. Negative for change in bowel or bladder habits. Distantly, she had thought she had uterine bleeding, but states it was in fact a urinary tract infection and the thickened uterus was found in followup to those symptoms. All other 12-point review of systems was negative. PHYSICAL EXAMINATION: On exam, the patient is 5 feet 4 inches, weighs 206 pounds with a BMI of 35. Blood pressure 133/53, pulse is 70 and regular, respiratory rate 16, oxygen saturation 95% on room air, and she is afebrile at 98.3. General Appearance: Very overweight, older woman, lying at 30 degrees and talking with her family, appears comfortable, in no acute distress. Psychologically pleasant and cooperative. Neurologically, awake, alert, and oriented to person, place, and time. Cranial nerves II through XII grossly intact. Grossly normal sensory and motor function in the upper and lower extremities. She does ambulate independently with a walker and this was observed in the dickens. Skin: Warm and dry. No appreciable cyanosis or rashes. HEENT: Pupils were equal and round. Mucous membranes moist. Oral mucosa unremarkable. Neck: Without appreciable thyromegaly or lymphadenopathy. Palpable carotid pulses. Free of bruits. Lungs: Distant from obesity, but clear without wheezes, rales, or rhonchi. Coronary: S1, S2, regular without murmurs or rubs. Abdomen: Overweight, active bowel sounds, soft, nontender. No hepatosplenomegaly, masses, or bruits heard. Lower extremities are thickened with minimal edema and warmth. DIAGNOSTIC STUDIES/LABORATORY DATA: A 12-lead ECG on 03/25/17 showed normal sinus rhythm, 66 beats a minute, QRS axis of 0, normal AV and IV conduction time and normal ST segments, corrected QT interval of [address] from 03/25/17, hypoattenuation in the white matter at the frontal lobe , possible chronic small vessel disease, small focus of edema, possible subacute to chronic infarct. Brain MRI done today, 03/26/17, shows multiple scattered small foci of elevated T2 FLAIR in the periventricular and subcortical white matter, differential of chronic small vessel disease. Carotid Doppler study shows atheromatous disease, but no significant stenosis. Transthoracic echo done today with bubble study showed no evidence of intracardiac shunting although only fair image quality, ejection fraction was 55 % to 60%, normal right ventricular function, [id number] mitral insufficiency , mild tricuspid insufficiency, and PA pressure of 38 mmHg, mildly increased. Outpatient studies done in November of this year showed an echo with an ejection fraction of 60% to 65% with abnormal diastolic filling. Her stress test of 11/12/16 showed no perfusion abnormalities with an ejection fraction of 54%. Sodium 140, potassium 4.2, chloride 109, bicarbonate 25, BUN 26, creatinine 1.32 (admission BUN 35, creatinine 1.44), glucose 106, AST 15, ALT 19, troponin 0.00, total cholesterol 112, triglycerides 104, LDL cholesterol 48, and HDL cholesterol 43. Urinalysis was 2+ esterase, 2+ white cells, 1+ bacteria, glucose negative, and her urine culture grew out E. coli. White count 7, hemoglobin 11.7, hematocrit 35, and platelets 146. Mild increase in monocytes. ESR 18. INR 0.9, PTT 25.2. Telemetry monitoring revealed a run of ventricular tachycardia 18 minutes after midnight last night and at 9:44 this morning, she had a run of supraventricular tachycardia. IMPRESSION AND PLAN: In summary, Ms. Vargas is an 81-year-old woman with known atherosclerotic heart disease with drug-eluding stents implanted in September 2005 to the circumflex and right coronary arteries, on medical management for moderate coronary artery disease that was not stented. She has atherosclerotic risk of obesity, dyslipidemia, hypertension, hyperglycemia, probable glucose intolerance and she has some renal insufficiency. The patient has now presented with transient ischemic attack-like symptoms with intermittent vision changes as described above, but interestingly additionally some eye pain and abilities of transient ischemic attacks. The differential for possible transient ischemic attacks would include paradoxical embolus with a recent driving, chronic edema, and low exercise ability for transverse myelitis, she could have cardioembolic phenomenon from asymptomatic paroxysmal atrial fibrillation, which would be supported by the SVT noted on monitor today. The quality of her echo was suboptimal, so the unremarkable bubble study today does not rule out cardioembolic source and a transesophageal echo could be considered and after discussing with Dr. Castelan will be added on for the morning. In terms of following up on the possibility of asymptomatic paroxysmal atrial fibrillation, external or implanted event monitors would be an option as an outpatient in addition to the inpatient monitoring. For the ventricular tachycardia, I am suspicious due to the timing that this could be related to obstructive sleep apnea and we will get an overnight oximetry. If she does have sleep apnea, this would be another risk factor for atrial fibrillation and measures should be taken to correct any desaturation overnight. The E. coli urinary tract infection is noted, but I doubt this is related to her eye problems. Dr. Monroy looked into the possibility of temporal arteritis with the eye pain and ophthalmological changes with the normal sed rate although conclusively rule it out, makes it much less likely. Additional recommendations will be made pending the findings on her transesophageal and further monitoring and final decisions regarding anticoagulation will be made the assistance of Neurology, Dr. Monroy. For now , we will continue her on her higher dose of aspirin 325 mg a day. [id number]/[facility] #: [id number] [facility]
[2017-03-28] MEDS: Omeprazole CAP* 20 MG PO SCH (05:29)
[2017-03-28 05:37] LABS: Hematocrit 33 % (35-47); Mean Corpuscular HGB Conc 34 g/dl (31-36); Mean Corpuscular Hemoglobin 31 pg (27-31); Mean Corpuscular Volume 91 fL (80-97); Mean Platelet Volume 10 um3 (7.4-10.4); Red Blood Count 3.58 10^6/ul (4.0-5.4); Red Cell Distribution Width 14 % (10.5-15); White Blood Count 6.7 10^3/ul (3.5-10.8)
[2017-03-28] MEDS: NS 0.9% 1000 ML* 1,000 ML IV SCH (07:45)
[2017-03-28] MEDS ORDERED: Midazolam* 1 MG/ML 5 ML VIAL (5 MG) ONE (08:42)
[2017-03-28] MEDS ORDERED: fentaNYL* 50 MCG/ML 2 ML VIAL (100 MCG VIAL) ONE (08:42)
[2017-03-28] MEDS ORDERED: Naloxone* 0.4 MG/ML 1 ML VIAL ONE (08:43)
[2017-03-28] MEDS ORDERED: Flumazenil* 0.1 MG/ML 5 ML MDV ONE (08:43)
[2017-03-28] MEDS ORDERED: Lidocaine 2% VISCOUS* 15 ML UDC ONE (08:43)
[2017-03-28] MEDS ORDERED: Aspirin TAB* 325 MG PO SCH (09:00)
[2017-03-28] MEDS ORDERED: Ondansetron INJ* 2 MG/ML VIAL ONE (09:41)
--- NOTE | 2017-03-28 12:13 | TEE ---
Patient: TATYANA FRASER [facility] Rec#: [id number] : 1935 Date: 03/28/2017 Age: 82y Height: 162.6 cm / 64.0 in Weight: 93.4 kg / 205.9 lbs Sex: F BSA: 2 Room#: [facility] Admit Date#: 03/26/2017 Type: Inpatient Referring: Shweta Gann MD Performing: Davion Wilburn MD Reading: Davion Wilburn MD Consulting Sales Executive: Jazz Jimenez RN RDCS Nurse: Fany Whyte CC: Julio Palmer MD CC: Dereje Cain MD Transesophageal Echocardiogram Indication: TIA BP: 146/59 HR: 79 Rhythm: NSR Findings History: CAD, PCI, HTN, HLD Technical Comments: The study quality is good. Completed at 1120. Left Ventricle: The left ventricular chamber size is normal. Global left ventricular wall motion and contractility are within normal limits. There is normal left ventricular systolic function. The estimated ejection fraction is 60-65%. There is an E to A reversal in the mitral valve flow pattern suggestive of diastolic dysfunction. Left Atrium: The left atrium is mildly dilated. No thrombus is visualized within the left atrium. There is no thrombus visualized in the left atrial appendage. Large complex structure without thrombus. Right Ventricle: The right ventricular chamber size and systolic function are within normal limits. Right Atrium: The right atrial cavity size is normal. A prominent eustachian valve is noted in the right atrium. The bubble study is negative. A patent foramen ovale is not demonstrated with color Doppler and agitated contrast. There is evidence of an atrial septal aneurysm. Aortic Valve: The aortic valve is trileaflet. The aortic valve leaflets are mildly thickened. There is no evidence of aortic regurgitation. There is no evidence of aortic stenosis. Mitral Valve: There is mild to moderate mitral regurgitation. multiple mild MR jets. There is no evidence of mitral stenosis. Tricuspid Valve: The tricuspid valve leaflets are normal. There is mild tricuspid regurgitation. There is no tricuspid stenosis. Pulmonic Valve: The pulmonic valve appears normal. There is a trace pulmonic regurgitation. There is no pulmonic stenosis. Pericardium: There is no significant pericardial effusion. Aorta: There is no dilatation of the ascending aorta. There is no dilation of the aortic root. There is mild atherosclerotic plaque seen in the arch and the descending aorta. Pulmonary Artery: The main pulmonary artery appears normal. Venous: The inferior vena cava appears normal. The pulmonary veins appear normal. 2 of 4 pulmonary veins are visualized. The superior vena cava appears normal. RUPERTO Procedures: All standard views were attempted within the limitations of patient tolerance and safety. History and physical as well as labs were reviewed. The patient was in a fasting state. Risks and benefits of the procedure, including alternatives, were discussed and written informed consent was obtained. The patient and/or their health care benefits representative expressed understanding of the procedure, risks and benefits. Baseline and continuous monitoring of blood pressure, heart rate, pulse oximetry and heart rhythm was performed throughout the procedure. The appropriate time-out procedure was performed as per [facility] protocol. The patient was placed in the left lateral decubitus position. The patient's posterior pharynx was anesthetized with 20ml of 2% viscous lidocaine. The patient received IV Midazolam with a total dose of 5 mg. The patient received IV Fentanyl with a total dose of 25 mcg. An oral bite block was inserted for protection of oral dentition. The multiplane transesophageal echocardiogram probe was inserted through the posterior oropharynx and advanced into the esophagus without difficulty. Multiple 2D images were obtained of the heart and its related structures. Color flow Doppler was used for evaluation. Spectral Doppler was also used. The atrial septum was interrogated with color flow Doppler. At the conclusion of the procedure the probe was removed with continuous suction without complications. The patient tolerated the procedure with no apparent complications. Contrast: Normal saline was used as contrast for the bubble study. Image 51. Conclusions The estimated ejection fraction is 60-65%. There is an E to A reversal in the mitral valve flow pattern suggestive of diastolic dysfunction. The left atrium is mildly dilated. There is no thrombus visualized in the left atrial appendage. Large complex structure without thrombus. The bubble study is negative. There is mild to moderate mitral regurgitation; multiple mild MR jets. There is mild tricuspid regurgitation. There is mild atherosclerotic plaque seen in the arch and the descending aorta. Measurements Name Value Normal Range Aortic Annulus 1.9 cm (1.4 - 2.6) Ao root diameter (2D) 2.9 cm (2.1 - 3.5) Ascending Ao 2.4 cm (2.1 - 3.4) Name Value Normal Range MV E-wave Vmax 0.87 m/sec - MV deceleration time 150 msec - MV A-wave Vmax 0.94 m/sec - MV E:A ratio 0.9 ratio -
[2017-03-28] MEDS: Sulfamethox/Trimethoprim DS 800/160* TAB PO SCH (12:55)
[2017-03-28] MEDS: Metoprolol Tartrate TAB* 100 MG TAB PO SCH (12:55)
[2017-03-28] MEDS: Valsartan TAB* 80 MG PO SCH (12:55)
[2017-03-28] MEDS: Docusate CAP* 100 MG PO SCH (12:55)
[2017-03-28 14:33] VITALS: BP 125/50
--- NOTE | 2017-03-30 22:54 | DS ---
CC: Dr. Palmer; Dr. Cain * DISCHARGE SUMMARY: DATE OF ADMISSION: 03/25/17 DATE OF DISCHARGE: 03/28/17 DISCHARGE DIAGNOSES: 1. Visual changes, possible transient ischemic attack. 2. History of coronary artery disease. 3. Hyperlipidemia, treated. 4. History of hypertension. 5. Chronic renal insufficiency. 6. Urinary tract infection. 7. Non-sustained ventricular tachycardia and supraventricular tachycardia. 8. Nocturnal hypoxemia, possible sleep apnea. 9. Thrombocytopenia, resolved. 10. Impaired fasting glucose. 11. History of hyperuricemia. 12. Recent COMPUTER FORENSICS INVESTIGATOR surgery for endometrial hyperplasia. 13. Diastolic dysfunction on transesophageal echo. HISTORY: Leonila Vargas is an 82-year-old woman admitted with visual disturbances. Please see the dictated admission note for details of the present illness, past medical history, family history, social and personal history, review of systems, and physical examination. In summary, she had changes with visual disturbance with loss of vision 2 days prior to admission in the right eye where half of words were gone when she try to read (on the right side) and then on the day of admission, bright colored lights in the left eye. Each episode lasted a few minutes. LABORATORY DATA: CBC on admission 03/25/17, WBC 6.8, H and H 13.1/39, MCV 91, PLT 156,000, H and H subsequently went down to 11/33 on 03/26/17, 11.7/35 on and 11/33 on 03/28/17, white [place], [place] [address] on 03/26/17, was then 146 on 03/27/17 and 130 on 03/28/17. Of note, her usual platelet count prior to this since 2010 is 156 to 201. INR 0.90, PTT 25.2. Chemistries on 03/25/17, sodium 138, potassium 4.2, chloride 104, CO2 28, BUN and creatinine 35/1.44, glucose 121. Rest of the comprehensive metabolic panel was normal. BMP on 03/26/17 and 03/27/17 remained essentially unchanged. Creatinines were 1.22 and 1.32. Lipids on 03/26/17, triglycerides 104, cholesterol 112, LDL 48, HDL 42.8. Urinalysis, yellow, cloudy, specific gravity 1.019, pH 5, dipsticks positive for esterase 2+, wbc 3+, squamous epithelial cells present, bacteria 1+, hyaline casts present. Urine culture grew E. coli, 50 to 75 cells and sensitive to everything except for ampicillin. IMAGING: Brain CT on 03/25/17 showed small focus of hypoattenuation within the subcortical white matter, right frontal lobe. Small vessel ischemia versus small focus of vasogenic edema, possible subcortical subacute to chronic infarct was considered. Brain MRI, 03/26/17, showed multiple scattered small foci of elevated T2/FLAIR signal in the periventricular and subcortical white matter including the above finding on the CT. This was felt to be suggestive of small vessel ischemia, chronic. No associated abnormal enhancement. Carotid Doppler study atheromatous disease noted. There was no hemodynamically significant stenosis of the left or right internal carotid artery. EKG, , showed normal sinus rhythm, T-waves more prominent, otherwise no significant changes since the previous record of 09/24/05. Transthoracic echocardiogram, 03/27/17, showed normal LV wall motion, contractility with EF 55 % to 60%. No evidence of cardiopulmonary shunt on bubble study, trace to mild mitral regurgitation, mild tricuspid regurgitation, evidence of mild pulmonary hypertension 38 mmHg. No significant changes since 11/01/16. Transesophageal echocardiogram, 03/28/17, with bubble study showed EF 60% to 65%, E to A reversal in the mitral valve flow pattern suggestive of diastolic dysfunction. Mild left atrial dilatation, no thrombus in the left atrial appendage. Negative bubble study, mild to moderate mitral regurgitation, mild tricuspid regurgitation, mild atherosclerotic plaque in the arch and the descending aorta. Telemetry monitoring showed normal sinus rhythm, nonsustained V-tach, 8 beats on 03/27/17, episodes of non-sustained supraventricular tachycardia. There were pauses of less than 2 seconds. CONSULTATIONS: Dr. Shweta Gann, Cardiology. She felt that the patient had known atherosclerotic heart disease with drug eluting stents implanted in 2005. She felt that she had TIA attack like symptoms. She felt the differential diagnoses included paradoxical embolus, cardiac embolic phenomenon from asymptomatic paroxysmal atrial fibrillation. She felt that her V-tach might relate to obstructive sleep apnea, suggested overnight oximetry. She noted the E. coli urinary tract infection did not feel related to her eye problems. She recommended transesophageal echocardiogram. Neurology consultation, Dr. Monroy. He got a sed rate and C-reactive protein to rule out temporal arteritis, which were ruled out. He felt that she had possible TIA. He recommended increasing her aspirin to 325 mg daily. He felt that if she did have atrial fibrillation, she would be a reasonable anticoagulation candidate if its cardiac source could be proven. He felt that it is possible that TIA could be from basilar artery on either side, but would not be able to prove that for sure and would not change her clinical management. Overnight pulse oximetry showed that she had O2 sat less than 89%, 6.9% of the time, which was 31 minutes 36 seconds. Her low O2 sat was 75%. HOSPITAL COURSE: The patient was initially admitted and placed on telemetry. She was seen in consultation by Cardiology and Neurology, see above. She had no further episodes. Her vital signs remained stable. Her blood pressure was in the 118 to 167 range. Most of her blood pressures were less than 140. Her aspirin dose was increased. With regards to her urinary tract infection, she got one dose of Levaquin in the emergency room and then was placed on Trimethoprim/sulfa. She remained anxious to go home throughout her hospitalization. She underwent testing as noted above. When I discussed the results of her overnight oximetry with her, she did not want to have oxygen at home. She said it was okay with her to in her sleep. She said she would wear an event monitor and would consider wearing CPAP depending on the results of testing. It was felt that she could be discharged on 03/28/17. DISCHARGE INSTRUCTIONS: At the time of discharge, she is to be on usual diet. ACTIVITY: As tolerated. MEDICATIONS: 1. Aspirin 325 mg daily. 2. Simvastatin 40 mg daily. 3. Valsartan 80 mg daily. 4. Metoprolol 100 mg twice daily. 5. Acetaminophen 500 mg every 4 hours as needed for pain. 6. MultiVites 1 daily. 7. Trimethoprim/sulfa DS 800/160 twice a day for 3 days. Prescription was sent in for her. The aspirin dose was noted to be increased. She is to follow up with Dr. Palmer in 1 week. She should also be following up with her human resources benefits assistant, Dr. Cain. [id number]/[facility] #: [id number] [facility]
== END 2017-03-28 15:39 | disposition home or self-care (01) | DRG 69 ==
LOC: ED 22:19 → MEDTELE 03-26 00:54 → OBSVTOIN 03-27 16:00
PROVIDERS: ADMIT Hospitalist; ATTEND Internal Medicine Geriatric Medicine
PROC: B24BZZ4 Ultrasonography of Heart with Aorta, Transesophageal (ICD-10-PCS; principal; 2017-03-27)
DX: G45.9 Transient cerebral ischemic attack, unspecified (principal); I47.2 Ventricular tachycardia; G93.6 Cerebral edema; D69.6 Thrombocytopenia, unspecified; I13.0 Hypertensive heart and chronic kidney disease with heart failure and stage 1 through stage 4 chronic kidney disease, or unspecified chronic kidney disease; I50.9 Heart failure, unspecified; I08.1 Rheumatic disorders of both mitral and tricuspid valves; E66.01 Morbid (severe) obesity due to excess calories; I47.1 Supraventricular tachycardia; N39.0 Urinary tract infection, site not specified; I27.20 Pulmonary hypertension, unspecified; H54.61 Unqualified visual loss, right eye, normal vision left eye; I25.10 Atherosclerotic heart disease of native coronary artery without angina pectoris; R20.1 Hypoesthesia of skin; E78.00 Pure hypercholesterolemia, unspecified; K58.9 Irritable bowel syndrome, unspecified; M13.89 Other specified arthritis, multiple sites; R29.700 NIHSS score 0; N18.9 Chronic kidney disease, unspecified; R73.01 Impaired fasting glucose; B96.20 Unspecified Escherichia coli [E. coli] as the cause of diseases classified elsewhere; G47.33 Obstructive sleep apnea (adult) (pediatric); R53.1 Weakness; Z98.42 Cataract extraction status, left eye; Z86.010 Personal history of colon polyps; I25.2 Old myocardial infarction; Z95.5 Presence of coronary angioplasty implant and graft; Z79.82 Long term (current) use of aspirin; Z68.35 Body mass index [BMI] 35.0-35.9, adult; Z88.1 Allergy status to other antibiotic agents; Z88.5 Allergy status to narcotic agent; Z88.8 Allergy status to other drugs, medicaments and biological substances; Z82.49 Family history of ischemic heart disease and other diseases of the circulatory system; Z91.041 Radiographic dye allergy status; Z87.891 Personal history of nicotine dependence; Z98.41 Cataract extraction status, right eye
CPT/HCPCS: 36415; 70450; 70553; 80048; 80053; 80061; 81003; 81015; 83735; 84484; 85025; 85027; 85610; 85652; 85730; 87077; 87086; 87186; 93005; 93306; 93312; 93325; 93880; 94762; 99156; 99157; A9270-GY; A9579; G0378; G8978-GP-CI; G8979-GP-CI; G8980-GP-CI; G8987-GO-CI; G8988-GO-CI; G8989-GO-CI; J2250; J2310; J2405; J3010

== ENCOUNTER 2022-02-13 15:36 | Inpatient (IN) ==
[2022-02-13 16:17] LABS: ABS Basophils 0.1 10^3/ul (0-0.2); ABS Eosinophils 0.2 10^3/ul (0-0.6); ABS Lymphocytes 1.6 10^3/ul (1.0-4.8); ABS Monocytes 0.5 10^3/ul (0-0.8); ABS Neutrophils 6.8 10^3/ul (1.5-7.7); Eosinophil % 1.7 %; Hematocrit 26 % (35-47); Hemoglobin 8.4 g/dL (12.0-16.0); Lymphocyte % 17.2 %; Mean Corpuscular HGB Conc 32 g/dL (31-36); Mean Corpuscular Hemoglobin 31 pg (27-31); Mean Corpuscular Volume 96 fL (80-97); Mean Platelet Volume 10.2 fL (7.4-10.4); Platelet Count 209 10^3/uL (150-450); Red Blood Count 2.76 10^6 /uL (3.70-4.87); Red Cell Distribution Width 15 % (10-15); White Blood Count 9.1 10^3/uL (3.5-10.8)
[2022-02-13 16:45] LABS: Albumin 4.2 g/dL (3.2-5.2); Albumin/Globulin Ratio 1.8 (1-3); Calcium 9.7 mg/dL (8.6-10.3); Globulin 2.3 g/dL (2-4); Potassium 4.3 mmol/L (3.5-5.0); Total Bilirubin 1.9 mg/dL (0.2-1.0); Total Protein 6.5 g/dL (6.4-8.9); eGFR CKD-EPI 40.4 (>60)
[2022-02-13] MEDS ORDERED: Iron Sucrose 20 MG/ML 5 ML VIAL IV PUSH ONE (17:08)
[2022-02-13] MEDS ORDERED: Iron Sucrose 200 MG in NS 0.9% 100 ml IVPB ONE (18:00)
[2022-02-13 19:45] LABS: Direct Bilirubin 0.3 mg/dL (0.03-0.18); Indirect Bilirubin 1.6 mg/dL (0.3-1.0)
[2022-02-14 07:49] LABS: ABS Eosinophils 0.1 10^3/ul (0-0.6); ABS Lymphocytes 1.5 10^3/ul (1.0-4.8); ABS Monocytes 0.4 10^3/ul (0-0.8); ABS Neutrophils 5.2 10^3/ul (1.5-7.7); Eosinophil % 1.8 %; Hematocrit 23 % (35-47); Hemoglobin 7.6 g/dL (12.0-16.0); Lymphocyte % 20.4 %; Mean Corpuscular HGB Conc 33 g/dL (31-36); Mean Corpuscular Hemoglobin 32 pg (27-31); Mean Corpuscular Volume 96 fL (80-97); Mean Platelet Volume 10.1 fL (7.4-10.4); Platelet Count 175 10^3/uL (150-450); Red Cell Distribution Width 15 % (10-15); White Blood Count 7.3 10^3/uL (3.5-10.8)
[2022-02-14 08:19] LABS: Albumin 3.8 g/dL (3.2-5.2); Albumin/Globulin Ratio 1.7 (1-3); Calcium 8.9 mg/dL (8.6-10.3); Globulin 2.2 g/dL (2-4); Potassium 4.2 mmol/L (3.5-5.0)
[2022-02-14] MEDS ORDERED: Aspirin EC 81 mg TAB.EC (enteric coated) PO SCH (09:00)
[2022-02-14] MEDS: CMC:Febuxostat 40 mg TAB (NF) PO SCH (09:01)
[2022-02-14] MEDS ORDERED: Perflutren Lipid Microsphere 3 ML VIAL ONE (10:06)
[2022-02-14] MEDS: methylPREDNISolone SOD SUCC 125 mg 2 ML VIAL IV SCH (18:33)
[2022-02-15] MEDS: methylPREDNISolone SOD SUCC 125 mg 2 ML VIAL IV SCH ×2 (08:17→09:25)
[2022-02-15 08:33] LABS: ABS Lymphocytes 0.7 10^3/ul (1.0-4.8); ABS Monocytes 0.2 10^3/ul (0-0.8); ABS Neutrophils 12.4 10^3/ul (1.5-7.7); Hematocrit 25 % (35-47); Hemoglobin 8.1 g/dL (12.0-16.0); Mean Corpuscular HGB Conc 33 g/dL (31-36); Mean Corpuscular Hemoglobin 32 pg (27-31); Mean Corpuscular Volume 97 fL (80-97); Mean Platelet Volume 9.7 fL (7.4-10.4); Nucleated Red Blood Cells % 0.1; Platelet Count 199 10^3/uL (150-450); Red Blood Count 2.51 10^6 /uL (3.70-4.87); Red Cell Distribution Width 15 % (10-15); White Blood Count 13.3 10^3/uL (3.5-10.8)
[2022-02-15] MEDS: CMC:Febuxostat 40 mg TAB (NF) PO SCH (08:39)
[2022-02-15 09:11] LABS: Albumin 4.2 g/dL (3.2-5.2); Albumin/Globulin Ratio 1.8 (1-3); Calcium 9.3 mg/dL (8.6-10.3); Globulin 2.3 g/dL (2-4); Total Bilirubin 1.2 mg/dL (0.2-1.0); Total Protein 6.5 g/dL (6.4-8.9); eGFR CKD-EPI 46.5 (>60)
[2022-02-15 09:16] LABS: Potassium 5.1 mmol/L (3.5-5.0)
[2022-02-15 10:04] LABS: Hematocrit for Retic CNT 25 % (35-47); Immature Retic Fraction 0.57; RBC Retic Count 2.61 10^6/uL (3.70-4.87)
[2022-02-15 10:27] LABS: Ferritin 460.5 ng/mL (11-307)
[2022-02-15 12:36] LABS: Hepatitis B Surface Antigen Nonreactive (Nonreactive)
[2022-02-15 12:41] LABS: Hepatitis A Ab IgM Negative (Negative)
[2022-02-15 12:42] LABS: Hepatitis B Core IgM Nonreactive (Nonreactive)
[2022-02-15 12:54] LABS: Hepatitis C Antibody Negative (Negative)
[2022-02-16 06:08] LABS: ABS Monocytes 0.6 10^3/ul (0-0.8); ABS Neutrophils 12.7 10^3/ul (1.5-7.7); Hematocrit 22 % (35-47); Lymphocyte % 6.6 %; Mean Corpuscular HGB Conc 33 g/dL (31-36); Mean Corpuscular Hemoglobin 32 pg (27-31); Mean Corpuscular Volume 97 fL (80-97); Mean Platelet Volume 10.3 fL (7.4-10.4); Platelet Count 195 10^3/uL (150-450); Red Blood Count 2.21 10^6 /uL (3.70-4.87); Red Cell Distribution Width 15 % (10-15); White Blood Count 14.3 10^3/uL (3.5-10.8)
[2022-02-16 06:26] LABS: Albumin 3.8 g/dL (3.2-5.2); Albumin/Globulin Ratio 1.9 (1-3); Calcium 8.9 mg/dL (8.6-10.3); Potassium 4.4 mmol/L (3.5-5.0); Total Bilirubin 0.8 mg/dL (0.2-1.0); Total Protein 5.8 g/dL (6.4-8.9); eGFR CKD-EPI 44.6 (>60)
[2022-02-16] MEDS: Aspirin EC 81 mg TAB.EC (enteric coated) PO SCH (08:52)
[2022-02-16] MEDS: methylPREDNISolone SOD SUCC 125 mg 2 ML VIAL IV SCH (08:52)
[2022-02-16] MEDS: CMC:Febuxostat 40 mg TAB (NF) PO SCH (09:31)
[2022-02-16] MEDS ORDERED: Polyethylene Glycol 3350 17 GM PACKET PO PRN (10:55)
[2022-02-16] MEDS ORDERED: Senna TAB 8.6 mg TAB PO PRN (10:55)
[2022-02-17 07:32] LABS: ABS Lymphocytes 1.7 10^3/ul (1.0-4.8); ABS Monocytes 0.9 10^3/ul (0-0.8); ABS Neutrophils 12.7 10^3/ul (1.5-7.7); Eosinophil % 0.1 %; Hematocrit 24 % (35-47); Hemoglobin 7.6 g/dL (12.0-16.0); Lymphocyte % 11.2 %; Mean Corpuscular HGB Conc 32 g/dL (31-36); Mean Corpuscular Hemoglobin 31 pg (27-31); Mean Corpuscular Volume 98 fL (80-97); Mean Platelet Volume 10.3 fL (7.4-10.4); Platelet Count 237 10^3/uL (150-450); Red Blood Count 2.41 10^6 /uL (3.70-4.87); Red Cell Distribution Width 17 % (10-15); White Blood Count 15.4 10^3/uL (3.5-10.8)
[2022-02-17 07:51] LABS: Albumin 3.9 g/dL (3.2-5.2); Albumin/Globulin Ratio 1.7 (1-3); Calcium 9.2 mg/dL (8.6-10.3); Globulin 2.3 g/dL (2-4); Potassium 4.1 mmol/L (3.5-5.0); Total Bilirubin 0.8 mg/dL (0.2-1.0); Total Protein 6.2 g/dL (6.4-8.9); eGFR CKD-EPI 36.6 (>60)
[2022-02-17] MEDS: methylPREDNISolone SOD SUCC 125 mg 2 ML VIAL IV SCH (08:22)
[2022-02-17] MEDS: Aspirin EC 81 mg TAB.EC (enteric coated) PO SCH (08:23)
[2022-02-17 08:46] LABS: Folate 15.28 ng/mL (5.90-24.80)
[2022-02-17] MEDS ORDERED: Polyethylene Glycol 3350 17 GM PACKET PO ONE (10:16)
[2022-02-18 06:43] LABS: ABS Lymphocytes 2.3 10^3/ul (1.0-4.8); ABS Neutrophils 9.1 10^3/ul (1.5-7.7); Eosinophil % 0.2 %; Hematocrit 23 % (35-47); Hemoglobin 7.2 g/dL (12.0-16.0); Lymphocyte % 18.4 %; Mean Corpuscular HGB Conc 32 g/dL (31-36); Mean Corpuscular Hemoglobin 31 pg (27-31); Mean Corpuscular Volume 98 fL (80-97); Platelet Count 208 10^3/uL (150-450); Red Blood Count 2.32 10^6 /uL (3.70-4.87); Red Cell Distribution Width 17 % (10-15); White Blood Count 12.5 10^3/uL (3.5-10.8)
[2022-02-18 07:10] LABS: Albumin 3.6 g/dL (3.2-5.2); Albumin/Globulin Ratio 1.8 (1-3); Calcium 8.9 mg/dL (8.6-10.3); Potassium 4.6 mmol/L (3.5-5.0); Total Bilirubin 0.7 mg/dL (0.2-1.0); Total Protein 5.6 g/dL (6.4-8.9); eGFR CKD-EPI 36.3 (>60)
[2022-02-18] MEDS: Aspirin EC 81 mg TAB.EC (enteric coated) PO SCH (08:11)
[2022-02-19 05:50] LABS: Hematocrit 27 % (35-47); Hemoglobin 8.4 g/dL (12.0-16.0); Mean Corpuscular HGB Conc 32 g/dL (31-36); Mean Corpuscular Hemoglobin 31 pg (27-31); Mean Corpuscular Volume 98 fL (80-97); Mean Platelet Volume 9.8 fL (7.4-10.4); Platelet Count 245 10^3/uL (150-450); Red Blood Count 2.74 10^6 /uL (3.70-4.87); Red Cell Distribution Width 17 % (10-15); White Blood Count 13.4 10^3/uL (3.5-10.8)
[2022-02-19 06:26] LABS: Albumin 3.7 g/dL (3.2-5.2); Albumin/Globulin Ratio 1.9 (1-3); Potassium 4.3 mmol/L (3.5-5.0); Total Bilirubin 0.7 mg/dL (0.2-1.0); Total Protein 5.7 g/dL (6.4-8.9); eGFR CKD-EPI 36.9 (>60)
[2022-02-19 06:27] LABS: ABS Lymphocytes 2.7 10^3/ul (1.0-4.8); ABS Neutrophils 9.7 10^3/ul (1.5-7.7); Eosinophil % 0.3 %; Lymphocyte % 19.9 %; Nucleated Red Blood Cells % 0.1
[2022-02-19] MEDS: Aspirin EC 81 mg TAB.EC (enteric coated) PO SCH (08:42)
[2022-02-19] MEDS ORDERED: Polyethylene Glycol 3350 17 GM PACKET PO ONE (09:58)
[2022-02-19 12:50] LABS: Albumin 3.4 g/dL (3.4-4.7); Albumin/Globulin Ratio 1.16; Total Protein(PEP) 6.4 g/dL (6.3 - 7.9)
[2022-02-20 06:36] LABS: ABS Lymphocytes 1.6 10^3/ul (1.0-4.8); ABS Monocytes 0.8 10^3/ul (0-0.8); ABS Neutrophils 9.3 10^3/ul (1.5-7.7); Eosinophil % 0.1 %; Hematocrit 26 % (35-47); Hemoglobin 8.6 g/dL (12.0-16.0); Lymphocyte % 13.5 %; Mean Corpuscular HGB Conc 33 g/dL (31-36); Mean Corpuscular Hemoglobin 32 pg (27-31); Mean Corpuscular Volume 98 fL (80-97); Nucleated Red Blood Cells % 0.1; Platelet Count 224 10^3/uL (150-450); Red Blood Count 2.68 10^6 /uL (3.70-4.87); Red Cell Distribution Width 17 % (10-15); White Blood Count 11.6 10^3/uL (3.5-10.8)
[2022-02-20 07:00] LABS: Albumin 3.6 g/dL (3.2-5.2); Albumin/Globulin Ratio 1.6 (1-3); Globulin 2.3 g/dL (2-4); Potassium 4.7 mmol/L (3.5-5.0); Total Bilirubin 0.7 mg/dL (0.2-1.0); Total Protein 5.9 g/dL (6.4-8.9); eGFR CKD-EPI 37.2 (>60)
[2022-02-20] MEDS: Aspirin EC 81 mg TAB.EC (enteric coated) PO SCH (07:49)
[2022-02-20] MEDS ORDERED: Lactated Ringers 1000 ml BAG 250 ML IV ONE (10:18)
[2022-02-20 13:06] LABS: Albumin 2.4 mg/dL; Albumin/Globulin Ratio 0.43; Gamma Globulin 1.7 mg/dL; Protein,Total, Random Urine 8 mg/dL
[2022-02-21] MEDS: Nystatin TOP POWDER 15 GM BTL TOPICAL SCH ×2 (01:38→09:05)
[2022-02-21 05:59] LABS: ABS Eosinophils 0.1 10^3/ul (0-0.6); ABS Lymphocytes 2.3 10^3/ul (1.0-4.8); ABS Monocytes 0.9 10^3/ul (0-0.8); ABS Neutrophils 9.9 10^3/ul (1.5-7.7); Eosinophil % 0.5 %; Hematocrit 29 % (35-47); Hemoglobin 9.1 g/dL (12.0-16.0); Lymphocyte % 17.3 %; Mean Corpuscular HGB Conc 31 g/dL (31-36); Mean Corpuscular Hemoglobin 31 pg (27-31); Mean Corpuscular Volume 99 fL (80-97); Mean Platelet Volume 9.5 fL (7.4-10.4); Nucleated Red Blood Cells % 0.1; Platelet Count 240 10^3/uL (150-450); Red Blood Count 2.96 10^6 /uL (3.70-4.87); Red Cell Distribution Width 17 % (10-15); White Blood Count 13.2 10^3/uL (3.5-10.8)
[2022-02-21] MEDS: Aspirin EC 81 mg TAB.EC (enteric coated) PO SCH (09:04)
[2022-02-21 11:55] VITALS: BP 123/56
== END 2022-02-21 14:25 | disposition home health service (06) | DRG 809 ==
LOC: ED 15:36 → EDHOLD 15:36 → SUATTDRO 19:45 → MED 02-14 13:45 → SUATTDRO 02-15 14:12 → MED 02-16 17:17
PROVIDERS: ADMIT Student in an Organized Health Care Education/Training Program; ATTEND Internal Medicine